=== PATIENT | female | born 1995 | race American Indian/Alaskan Native ===

== ENCOUNTER 2020-09-17 04:13 | Emergency (ER) | payer SELFPAY ==
[2020-09-17 05:28] VITALS: BP 144/86
[2020-09-17 06:27] LABS: Bilirubin,Urine NEG (Negative); Blood,Urine MOD (Negative); Color,Urine Straw (Yellow); Mucus,Urine FEW /HPF; Protein,Urine <15 mg/dL mg/dL (Negative); Urobilinogen,Urine < 2.0 mg/dL (<2.0)
[2020-09-17 06:34] LABS: HCG Qualitative,Urine Negative (Negative)
--- NOTE | 2020-09-17 08:38 | Emergency Department Report ---
ED General Adult HPI - General Chief complaint: Abdominal Pain Stated complaint: CHILLS, ABD PAIN, NAUSEA Time Seen by Provider: 09/17/20 07:39 Source: patient Mode of arrival: Ambulatory Limitations: No Limitations - History of Present Illness Initial comments: 25-year-old -Romanian female presents to the emergency room stating she was having abdominal pain with chills and nausea for a week. All complaints has resolved. Patient reports that she has a history of gallbladder disease was told that she has sludge in her gallbladder. Patient denies any vomiting no fever no dysuria no hematuria no vaginal discharge no chest pain shortness of breathing. Patient reports she has no pain at this time. Patient also reports that she thinks she is a little anxious as she had intercourse when the condom broke she did have a HIV test that was rapid and came back negative. She is concerned because states that they will have to send it out for over read for 90 days. Onset/Timin -: week(s) Location: abdomen Severity scale (0 -10): 0 Improves with: none Worsens with: none Associated Symptoms: fever/chills (Chills no fever) Treatments Prior to Arrival: none - Related Data Allergies Allergy/AdvReac Type Severity Reaction Status Date / Time No Known Allergies Allergy Unverified 09/17/20 05:33 ED Review of Systems ROS: Stated complaint: CHILLS, ABD PAIN, NAUSEA Other details as noted in HPI ED Past Medical Hx - Past Medical History Previous Medical History?: Yes Additional medical history: Gall Bladder Disease - Surgical History Past Surgical History?: No - Social History Smoking Status: Never Smoker Substance Use Type: None ED Physical Exam - General Limitations: No Limitations General appearance: alert, in no apparent distress - Head Head exam: Present: atraumatic, normocephalic - Eye Eye exam: Present: normal appearance - ENT ENT exam: Present: mucous membranes moist - Neck Neck exam: Present: normal inspection - Respiratory Respiratory exam: Present: normal lung sounds bilaterally. Absent: respiratory distress - Cardiovascular Cardiovascular Exam: Present: regular rate, normal rhythm. Absent: systolic murmur, diastolic murmur, rubs, gallop - GI/Abdominal GI/Abdominal exam: Present: soft, normal bowel sounds - Extremities Exam Extremities exam: Present: normal inspection - Back Exam Back exam: Present: normal inspection - Neurological Exam Neurological exam: Present: alert, oriented X3 - Psychiatric Psychiatric exam: Present: normal affect, normal mood - Skin Skin exam: Present: warm, dry, intact, normal color. Absent: rash ED Course Vital Signs 09/17/20 05:21 Temperature 99.0 F Pulse Rate 83 Respiratory 18 Rate Blood Pressure 144/86 O2 Sat by Pulse 100 Oximetry ED Medical Decision Making - Medical Decision Making 25-year-old -Romanian female presents to the emergency room stating she was having abdominal pain with chills and nausea for a week. All complaints has resolved. Patient reports that she has a history of gallbladder disease was told that she has sludge in her gallbladder. Patient denies any vomiting no fever no dysuria no hematuria no vaginal discharge no chest pain shortness of breathing. Patient reports she has no pain at this time. Patient also reports that she thinks she is a little anxious as she had intercourse when the condom broke she did have a HIV test that was rapid and came back negative. She is concerned because states that they will have to send it out for over read for 90 days. Reassured patient that following up with a primary care provider and a erp analyst will best suit her needs as she has multiple questions regarding her health. Patient has no past medical history except sludge in her gallbladder. Also discussed with patient to follow-up with [facility] as well as the health department. Patient verbalized understanding Critical care attestation.: If time is entered above; I have spent that time in minutes in the direct care of this critically ill patient, excluding procedure time. ED Disposition Clinical Impression: Chronic abdominal pain Disposition: - TO HOME OR SELFCARE Is pt being admited?: No Does the pt Need Aspirin: No Condition: Stable Instructions: Abdominal Pain (ED), Abdominal Pain, Adult, [id number] Additional Instructions: I recommend for you to follow-up with your primary care provider as well as a erp analyst and [facility]. I have also listed the health department for full evaluation if any further concerns. Your vital signs are stable your urinalysis is negative for any infection your test is negative. Referrals: [facility] [Provider Group] - 3-5 Days [facility] [Provider Group] - 3-5 Days [facility] [Outside] - 3-5 Days Forms: Work/School Release Form(ED) Time of Disposition: 08:41
== END 2020-09-17 12:54 | disposition home or self-care (01) ==
LOC: ED 04:13
DX: R10.9 Unspecified abdominal pain (principal); Z79.899 Other long term (current) drug therapy
CPT/HCPCS: 81001; 81025